=== PATIENT | female | born 1955 | race Caucasian/White ===

== ENCOUNTER 2018-06-04 13:32 | Emergency (ER) | payer BC ==
--- NOTE | 2018-06-04 14:04 | EDPHY ---
H & P Time Seen by Provider: 06/04/18 13:43 HPI/ROS: This patient reports a feeling of sinus congestion and pressure with a 3 day history of nasal congestion, postnasal drip, moderate sore throat. She has associated cough that is worse the morning productive of small amount of sputum in the morning but not the afternoon. She reports that she has had similar symptoms with "sinus infections" in the past. She claims that usually the usually develops fevers on or about day 3 or 4 of these illnesses that and that she requires antibiotics for improvement. She explains that she is visiting here from [place] since May 22 helping to care for her nephew-an adolescent who was injured on 21 of May was in the ICU in [place] until just the last day or 2. She explains that she has had long hours in the hospital with poor sleep due to this social situation. ROS: Constitutional: Positive fatigue. No fevers. No chills. HEENT: No ear pain. She is tolerating good p.o. Intake despite her sore throat. She has a slightly hoarse voice. Pulmonary: No hemoptysis. No pleuritic pain. No dyspnea. Cardiovascular: No heart palpitations or lightheadedness. No lower extremity swelling. GI: No abdominal pain, nausea vomiting. Neuro: No confusion, generalized headache, focal numbness tingling or weakness or photophobia. 7 point ROS is otherwise negative Past Medical/Surgical History: Sinusitis Social History: Visiting from [place] Smoking Status: Former smoker Physical Exam: Physical Exam Vital signs are normal. General: No acute distress HEENT: Nose: Yellow discharge bilaterally. She has moderate sinus tenderness to percussion over frontal sinuses bilaterally. Ears: External canals and tympanic membranes are clear with no erythema or abnormal findings bilaterally. Oropharynx: No erythema or exudates. No dysphonia. No drooling or stridor. Eyes: Pupils equal and react to light. Extraocular motions are intact. Neck: Supple with no meningismus. No lymphadenopathy Lungs: Clear to auscultation bilaterally with no rales, rhonchi or wheeze. No respiratory distress. Cardiac: Regular rate and rhythm with no murmur gallop or rub Skin: No rash or pallor. Neuro: Alert with no focal deficits noted. Initial differential diagnosis: Viral rhinosinusitis with viral pharyngitis, postnasal drip and cough, doubt bacterial sinusitis, doubt strep pharyngitis, doubt bronchitis. Constitutional: Initial Vital Signs Temperature (C) 36.7 C 06/04/18 13:42 Heart Rate 91 06/04/18 13:42 Respiratory Rate 16 06/04/18 13:42 Blood Pressure 139/91 H 06/04/18 13:42 O2 Sat (%) 93 06/04/18 13:42 O2 Delivery Mode Room Air Allergies/Adverse Reactions: Penicillins Allergy (Verified 06/04/18 13:43) Home Medications: Medication Instructions Recorded Benzonatate [Tessalon Pearles (RX)] 100 - 200 mg PO TID PRN #20 cap 06/04/18 Doxycycline Hyclate [Vibramycin 100 mg PO BID #14 cap 06/04/18 100 MG (*)] Fluconazole [Diflucan] 200 mg PO ONCE #2 tablet 06/04/18 Fluticasone Nasal [Flonase Nasal 2 sprays NASAL DAILY #1 mdi 06/04/18 [place] (RX)] Lexapro 06/04/18 Protonix 06/04/18 MDM/Departure - MDM ED Course/Re-evaluation: I counseled this patient regarding upper respiratory infections in some detail. She is convinced that this will progress to bacterial sinusitis requested script for antibiotic in case her symptoms worsens and she develops fevers. I blockage this request but encouraged her not to start antibiotic until she give the Flonase, ibuprofen humidifier plan 5-10 days 1st explaining that bacterial sinusitis typically developed until 10 days or so into a viral sinusitis that is not clearing. She has no clinical findings that suggest TUBE KNITTER infection, lower respiratory infection or other complicating factors. - Depart Disposition: Home, Routine, Self-Care Clinical Impression: URI with cough and congestion Condition: Good Instructions: Upper Respiratory Infection (ED) Additional Instructions: Diagnosis: 1. Pharyngitis 2. Upper respiratory infection with cough Plan: Humidifier Flonase steroid nasal spray Tessalon Perles Ibuprofen & Tylenol for discomfort if needed. Currently, your findings are consistent with a viral upper respiratory infection with cough. If you developed fevers and increasing sinus pain despite above treatment over the next 3-7 days, then filled the prescription for the doxycycline intake as well. Take a probiotic and/or yogurt while on doxycycline to prevent diarrhea. Also uses sun protection such as sunscreen hat as you more prone to sun burn while using doxycycline. Return for any significant worsening despite the treatment plan Prescriptions: Benzonatate [Tessalon Pearles (RX)] 100 - 200 mg PO TID PRN #20 cap PRN Reason: cough Doxycycline Hyclate [Vibramycin 100 MG (*)] 100 mg PO BID #14 cap Fluconazole [Diflucan] 200 mg PO ONCE #2 tablet Fluticasone Nasal [Flonase Nasal [place] (RX)] 2 sprays NASAL DAILY #1 mdi Referrals: STATE,OUT OF [Other] - As per Instructions
[2018-06-04 14:41] VITALS: BP 135/88
== END 2018-06-04 14:49 | disposition home or self-care (01) ==
LOC: CED 13:32
DX: J06.9 Acute upper respiratory infection, unspecified (principal); Z87.891 Personal history of nicotine dependence